=== PATIENT | male | born 1940 | race Caucasian/White ===

== ENCOUNTER 2017-08-26 11:52 | Emergency (ER) | payer OTHER, MEDICARE ==
--- NOTE | 2017-08-26 16:21 | EKG ---
[facility] [address] [facility] [place] [address] Signed Complete Heart Block Abnormal ECG No previous ECGs available Confirmed by VELVET ORELLANA MD ([id number] on 08/26/2017 4:21:11 PM Electronically Signed By: VELVET ORELLANA MD 08/26/17 1621 PATIENT NAME: MEGAN BROWN Electrocardiogram DATE OF : 40 PHYSICIAN: VELVET ORELLANA MD REPORT #: [id number] REPORT IS CONFIDENTIAL AND NOT TO BE RELEASED WITHOUT AUTHORIZATION
== END 2017-08-26 14:18 | disposition short-term general hospital (02) ==
LOC: ED 11:52
DX: S22.41XA Multiple fractures of ribs, right side, initial encounter for closed fracture (principal); I44.2 Atrioventricular block, complete; V59.9XXA Occupant (driver) (passenger) of pick-up truck or van injured in unspecified traffic accident, initial encounter
CPT/HCPCS: 36415; 70450; 71250; 71260; 72131; 80053; 81001; 84484; 85025; 93005; 93010; 96374; 99285; G0480; J1170; J7120